=== PATIENT | male | born 1960 | race Caucasian/White ===

== ENCOUNTER 2025-07-02 10:57 | Emergency (ER) | payer OTHER, SELFPAY ==
--- NOTE | ~2025-07-02 | US_ITS ---
CLINICAL HISTORY: left ankle foot swelling. DVT? Venous duplex ultrasound left lower extremity Comparison: None provided Findings: The visualized deep veins are fully compressible with normal Doppler color flow and spectral tracings. No popliteal cyst. IMPRESSION: 1. Negative for left lower extremity deep vein thrombosis. This document has been electronically signed by: Shirley Smith MD on 07/02/2025 14:13:55
--- NOTE | ~2025-07-02 | XR_ITS ---
CLINICAL HISTORY: trauma, fracture? 3 view left ankle Comparison: None provided Findings: No acute fractures. Ankle mortise intact. There is lateral soft tissue edema. No significant loss of joint space, osteophytes, or erosions. No ankle effusion. No radiopaque foreign body. IMPRESSION: No acute bony injury. This document has been electronically signed by: Shirley Smith MD on 07/02/2025 13:24:31
--- NOTE | ~2025-07-02 | XR_ITS ---
CLINICAL HISTORY: trauma. fractire? 3 view left foot Comparison: None provided Findings: No fractures or dislocations. Soft tissue edema of the lateral aspect of the ankle. No significant loss of joint space, osteophytes, or erosions. No ankle effusion. No radiopaque foreign body. IMPRESSION: 1. No acute findings. This document has been electronically signed by: Shirley Smith MD on 07/02/2025 13:24:12
[2025-07-02 11:36] VITALS: BP 135/78; PULSE 83; RESP 16; TEMP 36.3; O2SAT 97; BMI 25.5
--- NOTE | 2025-07-02 11:40 | ED_ITS ---
HPI - General Adult General Chief complaint: Extremity Injury, Lower Stated complaint: L ankle swollen Time Seen by Provider: 07/02/25 12:09 Source: patient Mode of arrival: ambulatory Limitations: no limitations History of Present Illness ED Provider: Omar Gomez [facility] narrative: 64 yold male presents to the ED for left ankle pain and swelling after hitting left anle on side of his boat while fishing. patient denies any head trauma or any other complaints. Related Data Previous Rx's ?Medication ?Instructions ?Recorded naproxen 500 mg tablet 500 mg PO BID PRN pain #14 t abs 07/02/25 Allergies Allergy/AdvReac Type Severity Reaction Status Date / Time penicillin V Allergy Unknown Verified 07/02/25 11:38 Review of Systems 2 Review of Systems: left ankle pain Yes all other systems are reviewed and are negative [facility] Social History Social History Advance Directives: No Advance Directives Information Provided: Yes Physical Exam ED Vital Signs: Vital Signs - 24 hr 07/02/25 11:36 Temperature 97.3 F Pulse Rate 83 Respiratory Rate 16 Blood Pressure 135/78 Pulse Oximetry 97 Oxygen Delivery Method Room Air BMI result Body Mass Index 25.5 Const General: cooperative, healthy appearing, comfortable, no acute distress and well developed Orientation/consciousness: patient oriented x3 HENMT Head: Yes normal to inspection, Yes No palpable skull fracture present, Yes normocephalic and Yes atraumatic Eyes General: appearance normal, both eyes and all related structures Neck Neck: Yes normal visual inspection, Yes full ROM, Yes no lymphadenopathy, Yes no meningeal signs, Yes trachea midline, Yes supple, No anterior neck swelling and No tender Chest Chest palpation & inspection: normal inspection of the chest and normal palpation of entire chest wall Resp Effort & Inspection: normal respiratory effort and able to speak in complete sentences Auscultation: clear to auscultation bilaterally Cardio Jugular venous distension: no JVD Heart sounds: S1 normal heart sound present and S2 normal heart sound present GI Inspection: Yes normal to inspection Palpation (GI): Soft to palpation, not firm, nontender, no guarding and not rigid General: Yes no CVA tenderness Back/Spine/Pelvis Back: no CVA tenderness and No back tenderness Skin General skin exam: no rashes or lesions noted, elasticity normal and turgor normal Neuro General: patient oriented x3, gait normal, tone normal, moves all extremities, Normal light touch and pain sensation, no meningeal signs, no focal motor deficits, CN's II-XI intact bilaterally and normal sensation to monofilament Extrem General: Yes normal to inspection, Yes full ROM and No capillary refill normal Ankle/foot/toe images: 2 1. positive for tenderness and slight ecchyomsis. rest of extremity normal. no erythema, wounds, foul odor, pus discharge, or deformitites. motor, neuro, and vacsular exam intact. Psych Appearance: grossly normal, well kempt and not disheveled Course Course Course Narrative: RME: 64-year-old male presents to ED for left ankle pain and swelling for 1 week. Patient states he went on a [place] and hit his left ankle on the foot since then has been swollen and painful. Patient denies any calf pain chest pain shortness of breath. Positive for left ankle foot swelling. X-rays ordered. Vascular motor neuro exam intact. Medications Administered Discontinued Medications Generic Name Dose Route Start Last Admin Trade Name Freq PRN Reason Stop Dose Admin Ketorolac Tromethamine 30 mg 07/02/25 14:22 07/02/25 14:44 Ketorolac Tromethamine 30 Mg/Ml Vial IM 07/02/25 14:23 30 mg ONCE ONE Administration Medical Decision Making Medical Decision Making [facility] Narrative: 64-year-old male presents to ED for left ankle pain after banging ankle on both last week while fishing. Patient denies falling to the water, hitting head, any other trauma. Patient denies any calf pain, recent long travel recent surgery, chest pain, or shortness of breath. Patient denies any redness, pus discharge, foul odor, or redness. Exam positive for left ankle foot swelling. Ultrasound negative for DVT. X-ray negative for fracture. Diagnosed in contusion. Not suspecting arterial occlusion, compartment syndrome, PE, cellulitis, osteomyelitis, necrotizing fasciitis, or any other life-threatening etiology Differential Diagnosis Differential Diagnoses: The differential diagnosis associated with the presentation includes (Contusion sprain fracture DVT) Admission/Observation Consideration of admission/observation: Escalation of care including admission/observation considered Independent Interpretation I performed an independent interpretation of an: Plain X-Ray and Ultrasound Radiology Impression Discussion of test interpretation with radiology: I have reviewed the radiologist's reading. Independent Historian Clinical information obtained from an independent historian. History obtained from or confirmed by: Other (patient) Prescription Management I considered prescription management with: Pain Medication Discharge Plan Discharge Clinical Impression: Ankle sprain and strain Patient Disposition: Home, Self-Care Instructions: Ankle Sprain (ED), How to Use an Elastic Bandage (ED), P.R.I.C.E. Treatment (ED) Additional Instructions: Recommend follow-up with your primary care provider. X-rays came back negative for fracture. Ultrasound came back negative for DVT. Recommend ice elevation and NSAIDs. Return to the ED immediately for any worsening pain, bluish black discoloration, redness, skin tightness, calf pain, chest pain, shortness of breath, fever, chills, or any other concerning symptoms. Ordering Physician: Omar Gomez Date of Service: 07/02/25 Procedure(s): US venous duplex LE LT Accession Number(s): [id number] cc: Omar Gomez; Physician,Unknown ~ Reason for Exam: left ankle/foot swelling. DVT? CLINICAL HISTORY: left ankle foot swelling. DVT? Venous duplex ultrasound left lower extremity Comparison: None provided Findings: The visualized deep veins are fully compressible with normal Doppler color flow and spectral tracings. No popliteal cyst. IMPRESSION: 1. Negative for left lower extremity deep vein thrombosis. This document has been electronically signed by: Shirley Smith MD on 07/02/2025 14:13:55 rdering Physician: Omar Gomez Date of Service: 07/02/25 Procedure(s): XR foot LT min 3V Accession Number(s): [id number] cc: Omar Gomez; Physician,Unknown ~ Reason for Exam: trauma. fractire? CLINICAL HISTORY: trauma. fractire? 3 view left foot Comparison: None provided Findings: No fractures or dislocations. Soft tissue edema of the lateral aspect of the ankle. No significant loss of joint space, osteophytes, or erosions. No ankle effusion. No radiopaque foreign body. IMPRESSION: 1. No acute findings. This document has been electronically signed by: Shirley Smith MD on 07/02/2025 13:24:12 Ordering Physician: Omar Gomez Date of Service: 07/02/25 Procedure(s): XR ankle LT min 3V Accession Number(s): [id number] cc: Omar Gomez; Physician,Unknown ~ Reason for Exam: trauma, fracture? CLINICAL HISTORY: trauma, fracture? 3 view left ankle Comparison: None provided Findings: No acute fractures. Ankle mortise intact. There is lateral soft tissue edema. No significant loss of joint space, osteophytes, or erosions. No ankle effusion. No radiopaque foreign body. IMPRESSION: No acute bony injury. This document has been electronically signed by: Shirley Smith MD on 07/02/2025 13:24:31 Prescriptions: New naproxen 500 mg tablet 500 mg PO BID PRN (Reason: pain) Qty: 14 0RF Stand Alone Forms: Work/School Release Interventions: ED Discharge Assessment Last Done: 07/02/25 15:09 Discharge Date/Time: 07/02/25 15:10 Print Language: Yakut
--- OUTSIDE RECORDS SUMMARY | 2025-07-02 12:27 | XMS_ITS | Encounter Summary ---
Author Organization [facility] Health Address [address] [place] [address] Care Team Providers Care Forming Department Supervisor Name Role Phone Unavailable Primary Care Provider Unavailabl e Prior Encounters Date Type Department Care Team Description 11/14/2019 Converted 13x Documents [facility] [address], [address] [address] <No scans attached> Plan of Treatment Not on file Visit Diagnoses Not on file
--- OUTSIDE RECORDS SUMMARY | 2025-07-02 12:27 | XMS_ITS | Encounter Summary ---
Author Organization [facility] Address [address] [place] [address] Care Team Providers Care Volunteer Manager Name Role Phone Clifford Mckay MD Primary Care Provider [phone] Jason Pillai MD Unavailable [phone] Encounter Details Date Type Department Care Team (Late st Contact Info) Description 07/06/2023 Orders Only [facility] [address] [place], [place] [id number] Provider, MD Joi Social History Tobacco Use Types Packs/Day Years Used Date Smoking Tobacco: Never Smokeless Tobacco: Never Alcohol Use Standard Drinks/Week Comments Yes 3 (1 standard drink = 0.6 oz pur e alcohol) Social drinker Health Literacy Answer Date Recorded Do you ever need help readin g or understanding your medical information? No 02/04/2023 Health Literacy Assistance Not on file 02/04 Access to Care Answer Date Recorded In the past year have you or any family members you live with been unable to get medical or health care when it was really needed? No 02/04/2023 Access to Care Assistance Not on file 2022 Social Connections Answer Date Recorded In the last 12 months, were you satisfied with the amount of time you were able to connect with family, friends, or neighbors? No 02/04/2023 Would the patient like pam tanchrissy or more information with this area of need? Yes 02/04/2023 Financial Resource Strain Answer Date R ecorded In the past 12 months has th e electric, gas, oil, or water [employer] threatened to shut off services in your home? No 02/04/2023 Financial Resource Strain Assistance Not on file 02/04/2023 Food Insecurity Answer Date Recorded In the last 12 months, did y ou ever eat less than you felt you should because there wasn't enough money for food? Never true 02/04/2023 Food Insecurity Assistance Not on file 02/04 Transportation Needs Answer Date Record ed Do you put off or neglect go ing to the doctor because of distance or transportation? No 02/04/2023 Transportation Needs Assistance Not on file 02/04/2023 Housing Stability Answer Date Recorded Are you worried or concerned that in the next two months you may not have stable housing that you own, rent, or stay in as a part of a household? No 02/04/2023 Housing Stability Assistance Not on file 09/2023 Sex and Gender Information Value Date Recorded Sex Assigned at Male 11/05/2022 11:09 AM EST Legal Sex Male 7:17 AM EST Gender Identity Male 05/01/2022 8:49 AM EDT Sexual Orientation Straight 02/01/2025 8: 31 AM EDT documented as of this encounter Functional Status * Patient's vision adequate to safely complete daily activities? Answer Date of Assessment Author Yes 08/04/2020 11:00 PM EDT Makeda Garcia RN documented as of this encounter Plan of Treatment Upcoming Encounters Date Type Department Care Team (Late st Contact Info) Description 07/14/2025 7:30 AM EDT Office Visit [facility] [address] [place] [address] Jason Pillai MD [address] [place] [address] [address] [place] [address] documented as of this encounter Procedures Procedure Name Priority Date/Time Associated Diagnosis Comments DIABETES EYE EXAM Routine 06/16/2022 10:12 AM EDT documented in this encounter Results * DIABETES EYE EXAM (06/16/2022 10:12 AM EDT) Historical Provider HEALTH MAINTENANCE Final Result documented in this encounter Visit Diagnoses Not on filedocumented in this encounter Care Teams Volunteer Manager Relationship Specialty Start Date End Date Clifford Mckay MD [address] [facility] [address] [place] [address] PCP - General Internal Medicine 08/06/20 Jason Pillai MD [address] [facility] [address] [place] [address] Referring Physician Endocrinology 02/14/22 documented as of this encounter
--- OUTSIDE RECORDS SUMMARY | 2025-07-02 12:27 | XMS_ITS | Clinical Summary ---
Author Organization [facility] Health [facility] [address] [address] [address] Care Team Providers Care Building Contractor Name Role Phone Unavailable Primary Care Provider Unavailabl e Social History Tobacco Use Types Packs/Day Years Used Date Smoking Tobacco: Never Assessed Sex and Gender Information Value Date Recorded Sex Assigned at Not on file Legal Sex Male 8:39 PM PDT Gender Identity Not on file Sexual Orientation Not on file Plan of Treatment Not on file
--- OUTSIDE RECORDS SUMMARY | 2025-07-02 12:28 | XMS_ITS | Encounter Summary ---
Author Organization [facility] Address [address] [place] [address] Care Team Providers Care Board Certified Arts Therapist Name Role Phone Clifford Mckay MD Primary Care Provider [phone] Jason Pillai MD Unavailable [phone] Encounter Details Date Type Department Care Team (Late st Contact Info) Description 08/05/2022 Scanned Documents [facility] External Scan [address] [place] [address] Scanned, Document Social History Tobacco Use Types Packs/Day Years Used Date Smoking Tobacco: Never Smokeless Tobacco: Never Alcohol Use Standard Drinks/Week Comments Yes 0 (1 standard drink = 0.6 oz pur e alcohol) socially Sex and Gender Information Value Date Recorded [...] Description 07/14/2025 7:30 AM EDT Office Visit [address] [place], [place] [address] Jason Pillai MD [address] [facility] [address] [place] [address] documented as of this encounter Visit Diagnoses Not on filedocumented in this encounter Care Teams Board Certified Arts Therapist Relationship Specialty Start Date End Date Clifford Mckay MD [address] [facility] [address] [place] [phone] PCP - General Internal Medicine 08/06/20 Jason Pillai MD [address] [facility] [address] [place] [address] Referring Physician Endocrinology 02/14/22 documented as of this encounter
--- OUTSIDE RECORDS SUMMARY | 2025-07-02 12:28 | XMS_ITS | Encounter Summary ---
Author Organization [facility] Address [address] [place] [address] Care Team Providers Care Refrigerator Repairman Name Role Phone Clifford Mckay MD Primary Care Provider [phone] Jason Pillai MD Unavailable [phone] Encounter Details Date Type Department Care Team (Late st Contact Info) Description 03/28/2025 Scanned Documents [facility] Physician [facility] External Scan [address] [place] [id number] Scanned, Document Social History Tobacco Use Types [...] No 02/04/2023 Would the patient like pam [place]ks[place] or more information with this area of need? Yes 02/04/2023 Financial Resource Strain Answer Date R ecorded In the past 12 months has [employer], gas, oil, or water [employer] threatened to shut off services in your [...] Description 07/14/2025 7:30 AM EDT Office Visit [facility] Physician [address] [place] [address] Jason Pillai MD [address] [facility] [address] [place] [address] documented as of this encounter Visit Diagnoses Not on filedocumented in this encounter Care Teams Refrigerator Repairman Relationship Specialty Start Date End Date Clifford Mckay MD [address] [place] [address] PCP - General Internal Medicine 08/06/20 Jason Pillai MD [address] [facility] [address] [place] [address] Referring Physician Endocrinology 02/14/22 documented as of this encounter
--- OUTSIDE RECORDS SUMMARY | 2025-07-02 12:28 | XMS_ITS | Encounter Summary ---
Author Organization [facility] Address [address] [place] [address] Care Team Providers Care Cloth Framer Name Role Phone Clifford Mckay MD Primary Care Provider [phone] Jason Pillai MD Unavailable [phone] Encounter Details Date Type Department Care Team (Late st Contact Info) Description 06/06/2025 Scanned Documents [facility] [address] [place], [place] [address] Jason Pillai MD [address] [facility] [address] [place], [place] [id number] Social History Tobacco Use Types Packs/Day Years [...] th e electric, gas, oil, or water company threatened to shut off services in your [...] Description 07/14/2025 7:30 AM EDT Office Visit [facility] [address] [place] [address] Jason Pillai MD [address] [facility] [address] [place] [address] documented as of this encounter Visit Diagnoses Not on filedocumented in this encounter Care Teams Cloth Framer Relationship Specialty Start Date End Date Clifford Mckay MD [address] [place] [address] PCP - General Internal Medicine 08/06/20 Jason Pillai MD [address] [facility] [address] [place] [address] Referring Physician Endocrinology 02/14/22 documented as of this encounter
--- OUTSIDE RECORDS SUMMARY | 2025-07-02 12:28 | XMS_ITS | Clinical Summary ---
Author Organization [facility] Address [address] [place] [address] Care Team Providers Care Antisqueak Applier Name Role Phone Clifford Mckay MD Primary Care Provider [phone] Jason Pillai MD Unavailable [phone] Allergies Active Allergy Reactions Criticality Noted Date Comments Penicillins 07/09/2010 Medications Blood Glucose Monitoring Suppl (CONTOUR NEXT MONITOR) w/Device KITIndications:Ty pe 2 Diabetes Mellitus 1 Device 3 times daily Indications : Type 2 Diabetes 1 Kit 12/20/19 25 Active BD PEN NEEDLE JOSE A 2ND GEN 32G X 4 MM MISCIndications:U ncontrolled type 2 diabetes mellitus with hyperglycemia (HCC) Use as directed for daily insulin injection. 100 Each 3 12/23/19 25 Active glucose blood test strips (CONTOUR NEXT TEST) test stripIndications: Type 2 Diabetes Mellitus Check FSBG 3x daily. Indications : Type 2 Diabetes 100 Each 3 02/15/20 25 Active Microlet Lancets MISCIndications:T ype 2 Diabetes Mellitus 1 Device 3 times daily Indications : Type 2 Diabetes 300 Each 3 03/31/20 25 Active Insulin Glargine (LANTUS SOLOSTAR) 100 UNIT/ML SOPNIndications:T ype 2 Diabetes Mellitus Inject 38 Units into the skin nightly Indications : Type 2 Diabetes 45 mL 1 06/06/20 25 Active metFORMIN (GLUCOPHAGE) 1000 MG tabletIndications :Type 2 Diabetes Mellitus Take 1 Tablet (1,000 mg) by mouth 2 times daily (with meals) Indications : Type 2 Diabetes 180 Tablet 06/06/20 25 Active atorvastatin (LIPITOR) 40 MG tabletIndications :Mixed hyperlipidemia TAKE 1 TABLET(40 MG) BY MOUTH EVERY NIGHT FOR HIGH AMOUNT OF FATS IN THE BLOOD 90 Tablet 3 06/27/20 25 Active atorvastatin (LIPITOR) 40 MG tabletIndications :Hyperlipidemia Take 1 Tablet (40 mg) by mouth daily at 6pm Indications : High Amount of Fats in the Blood 90 Tablet 1 12/31/19 25 025 Discontinued metFORMIN (GLUCOPHAGE) 1000 MG tabletIndications :Type 2 Diabetes Mellitus Take 1 Tablet (1,000 mg) by mouth 2 times daily (with meals) Indications : Type 2 Diabetes 180 Tablet 03/28/20 25 025 Discontinued(R eorder) Insulin Glargine (LANTUS SOLOSTAR) 100 UNIT/ML SOPNIndications:T ype 2 Diabetes Mellitus Inject 38 Units into the skin nightly Indications : Type 2 Diabetes 45 mL 1 03/28/20 25 025 Discontinued(R eorder) Active Problems Problem Noted Date Diagnosed Date Acute right ankle pain 03/10/2023 Right calf pain 03/10/2023 Uncontrolled type 2 diabetes mellitus with hyper glycemia 04/24/2022 Mixed hyperlipidemia 04/24/2022 History of pancreatitis 04/24/2022 Type 2 diabetes mellitus wit hout complication, without long-term current use of insulin 08/06/2020 Fatty liver 08/05/2020 Hyponatremia 08/05/2020 Pancreatitis 08/04/2020 Encounters Date Type Department Care Team Description 06/23/2025 Refill [facility] Physician [address] [place] [address] Jason Pillai MD Mixed hyperlipidemia 06/10/2025 Results Follow-Up [facility] Physician [address] [place] [address] Jason Pillai MD Comprehensive Metabolic Panel, Hemoglobin A1c, Lipid Panel, CBC w/Automated Diff 06/06/2025 8:30 AM EDT Office Visit [facility] Physician [address] [facility] [place] [address] Jason Pillai MD Uncontrolled type 2 diabetes mellitus with hyperglycemia (HCC) (Primary Dx); Mixed hyperlipidemia 06/06/2025 Scanned Documents [facility] Physician [address] [place] [address] Jason Pillai MD 06/06/[address] [place] [address] Viviana Rand MA Uncontrolled type 2 diabetes mellitus with hyperglycemia (HCC) 04/14/[address] [place] [address] Jason Pillai MD Uncontrolled type 2 diabetes mellitus with hyperglycemia (HCC) from Last 3 Months Family History Medical History Relation Name Comments Cancer Maternal Aunt Raymond Taylor Cancer Maternal Uncle Nicholas Aguillon Diabetes Natural Father Hunter Mehringer Diabetes Natural Mother Jody Moranhringer Relation Name Status Comments Maternal Aunt Raymond Taylor Maternal Uncle Nicholas Aguillon Natural Father Hunter Mehringer Natural Mother Jody Moranhringer Alive Social History Tobacco Use Types Packs/Day Years Used Date Smoking Tobacco: Never Smokeless Tobacco: Never Tobacco Cessation:Counseling Given: Yes Alcohol Use Standard Drinks/Week Comments Yes 3 [...] ecorded In the past 12 months has e electric, gas, oil, or water [employer] threatened to shut off services in your [...] Orientation Straight 02/01/2025 8: 31 AM EDT Last Filed Vital Signs Vital Sign Reading Time Taken Comments Blood Pressure 110/70 06/06/2025 8:28 AM EDT Pulse 76 06/06/2025 8:28 AM EDT Temperature 36.7 C (98 F) 06/06/2025 8:28 AM EDT Respiratory Rate 20 06/06/2025 8:28 AM EDT Oxygen Saturation 98% 06/06/2025 8:28 AM EDT Inhaled Oxygen Concentration - - Weight 80.3 kg (177 lb) 06/06/2025 8:28 AM EDT Height 177.8 cm (5' 10 ) 06/06/2025 8:28 AM EDT Body Mass Index 25.4 06/06/2025 8:28 AM EDT Plan of Treatment Upcoming Encounters Date Type Department Care Team (Late st Contact Info) Description 07/14/2025 7:30 AM EDT Office Visit [facility] [address] [place] [address] Jason Pillai MD [address] [facility] [address] [place] [address] Health Maintenance Due Date Last Done Comments Foot Exam 1972 Annual Physical Exam 1974 Hepatitis C Antibody Screen 1980 Colonoscopy 2007 Colorectal Cancer Screening 2007 FIT DNA / Cologuard 2007 FIT 2007 FOBT 2007 Sigmoidoscopy 2007 Zoster Vaccines (1 of 2) 2012 Ophthalmology Exam 06/16/2023 06/16/2022 PSA 01/25/2024 01/24/2022 Microalbuminuria 07/06/2024 07/06/2023, , 08/04/2020 Depression Screening 05/10/2025 02/08/2025, 12/20/2024, 11/08/2024, Additional history exists COVID-19 Vaccine ( - 2023-2 5 season) 2025 Flu Vaccine (#1) 06/26/2025 Hemoglobin A1C 09/06/2025 06/06/2025, 01/24, 11/08/2024, Additional history exists Lipids 06/06/2026 06/06/2025, 01/24, 11/08/2024, Additional history exists Tetanus / Tdap Shot 04/15/2035 04/15/2025 Pneumococcal Vaccine: Pediatrics (0 to 5 Years) and At-Risk Patients (6 to 64 Years) Aged Out No longer eligible based on patient's age to complete this topic Procedures Procedure Name Priority Date/Time Associated Diagnosis Comments CBC W/AUTOMATED DIFF PERFORMABLE Routine 06/06/2025 9:05 AM EDT Uncontrolled type 2 diabetes mellitus with hyperglycemia (HCC) LIPID PANEL Routine 06/06/2025 9:05 AM EDT Uncontrolled type 2 diabetes mellitus with hyperglycemia (HCC) Mixed hyperlipidemia CBC W/AUTOMATED DIFF PERFORMABLE Routine 06/06/2025 9:05 AM EDT Uncontrolled type 2 diabetes mellitus with hyperglycemia (HCC) HEMOGLOBIN A1C Routine 06/06/2025 9:05 AM EDT Uncontrolled type 2 diabetes mellitus with hyperglycemia (HCC) COMPREHENSIVE METABOLIC PANEL Routine 06/06/2025 9:05 AM EDT Uncontrolled type 2 diabetes mellitus with hyperglycemia (HCC) MICROALBUMIN RANDOM UR*X*[id number] Routine 07/06/2023 9:38 AM EDT Uncontrolled type 2 diabetes mellitus with hyperglycemia (HCC) Mixed hyperlipidemia DIABETES EYE EXAM Routine 06/16/2022 10:12 AM EDT EXTERNAL PSA Routine 01/24/2022 from Last 3 Months or Most Recently Relevant to Health Maintenance Results * CBC w/Automated Diff (06/06/2025 9:05 AM EDT) WBC 6.32 4.00 - 11.00 K/UL 06/06/2025 3:50 PM [facility] RBC 4.81 4.00 - 5.70 m/uL 06/06/2025 3:50 PM [facility] HGB 13.8 13.0 - 18.0 g/dL 06/06/2025 3:50 PM [facility] HCT 41.8 40.0 - 52.0 % 06/06/2025 3:50 PM [facility] MCV 86.9 77.0 - 98.0 FL 06/06/2025 3:50 PM [facility] MCH 28.7 26.0 - 32.0 PG 06/06/2025 3:50 PM [facility] MCHC 33.0 32.0 - 36.0 G/DL 06/06/2025 3:50 PM [facility] RDW 13.2 11.6 - 14.4 % 06/06/2025 3:50 PM [facility] PLT 301 150 - 400 K/UL 06/06/2025 3:50 PM [facility] MPV 9.4 9.4 - 12.4 FL 06/06/2025 3:50 PM [facility] NRBC Percent 0.0 <=0.0 % 06/06/2025 3:50 PM [facility] NRBC Abs 0.00 <=0.00 K/UL 06/06/2025 3:50 PM [facility] Neutro 62.7 40.0 - 70.0 % 06/06/2025 3:50 PM [facility] Lymph 24.5 19.0 - 45.0 % 06/06/2025 3:50 PM [facility] Monocyte % 11.2 4.7 - 12.5 % 06/06/2025 3:50 PM [facility] Eosinophil % 0.9 0.1 - 7.0 % 06/06/2025 3:50 PM [facility] Baso % 0.5 0.0 - 2.0 % 06/06/2025 3:50 PM [facility] Immature Granulocyte 0.2 >0.0 - <0.5 % 06/06/2025 3:50 PM [facility] Neutro Absolute 3.96 1.80 - 7.70 K/UL 06/06/2025 3:50 PM [facility] Lymph Absolute 1.55 1.20 - 3.70 K/UL 06/06/2025 3:50 PM [facility] Park Absolute 0.71 0.00 - 0.80 K/UL 06/06/2025 3:50 PM [facility] Eo Absolute 0.06 0.00 - 0.50 K/UL 06/06/2025 3:50 PM [facility] Basophils Ab 0.03 0.00 - 0.10 K/UL 06/06/2025 3:50 PM [facility] Immature Granulocyte Absolute 0.01 <0.06 K/uL 06/06/2025 3:50 PM [facility] Blood Venipuncture / Unknown 06/06/2025 9:05 AM EDT 06/06/2025 9:05 AM EDT us Jason Pillai MD HEMATOLOGY ORDERABLES Final Result Performing Organization Address City/[facility]/ZIP Co de Phone Number [address] [address] * (ABNORMAL) Hemoglobin A1c (06/06/2025 9:05 AM EDT) Est. Avg. Glucose 165.68 mg/dL 06/06/2025 4:44 PM EDT [facility] Hemoglobin A1C 7.4(H) <5.7 % 06/06/2025 4:44 PM EDT [facility] Comment: ADA RECOMMENDATIONS: Non Diabetic: <5.7% Prediabetic: 5.7% to 6.4% Diabetic: =or> 6.5% Diabetic Control:<7.0% Properly Managed GLYCOHEMOGLOBIN ASSAYS SHOULD BE PERFORMED AT LEAST TWICE YEARLY FOR THE PATIENT WHO HAS STABLE GLYCEMIC CONTROL. Blood Venipuncture / Unknown 06/06/2025 9:05 AM EDT 06/06/2025 9:05 AM EDT Jason Pillai MD CHEMISTRY ORDERABLES Final Result Performing Organization Address [facility] Co de Phone Number [address] [address] * Lipid Panel (06/06/2025 9:05 AM EDT) Cholesterol 89 <200 MG/DL 06/06/2025 4:29 PM EDT [facility] Comment: CHOL. RISK FACTORS FOR C.H.D. FOR ADULT PATIENTS ONLY <200 MG/DL: DESIRABLE 200-239 MG/DL: BORDERLINE/HIGH RISK 240 OR >240 MG/DL: HIGH RISK Non-HDL Cholesterol 48 06/06/2025 4:29 PM EDT [facility] Comment: PLEASE NOTE THAT CHOL (-HDL) IS A CALCULATED TEST DERIV ED FROM TOTAL CHOLESTEROL MINUS HDL. NCEP RECOMMENDS A TARGET GOAL OF 30 MG/DL MORE THAN THE TARGET GOAL FOR LDL. HDL 41 >39 MG/DL 06/06/2025 4:29 PM EDT [facility] Triglycerides 45 <150 MG/DL 06/06/2025 4:29 PM EDT [facility] LDL 39 <100 MG/DL 06/06/2025 4:29 PM EDT [facility] Comment:LDL WAS CALCULATED U SING THE FORMULA: LDL = CHOLESTEROL - HDL - (TRIGLYCERIDE / 5). VLDL 9 <=30 mg/dL 06/06/2025 4:29 PM EDT [facility] Comment:VLDL WAS CALCULATED USING FORMULA: VLDL= TRIGLYCERIDE / 5. Blood Venipuncture / Unknown 06/06/2025 9:05 AM EDT 06/06/2025 9:05 AM EDT us Jason Pillai MD CHEMISTRY ORDERABLES Final Result [address] [address] * (ABNORMAL) Comprehensive Metabolic Panel (06/06/2025 9:05 AM EDT) Sodium 139 136 - 145 MMOL/L 06/06/2025 4:30 PM EDT [facility] Potassium 4.5 3.5 - 5.2 MMOL/L 06/06/2025 4:30 PM T [facility] Chloride, Serum 107 98 - 107 MMOL/L 06/06/2025 4:30 PM T [facility] CO2 25 22 - 30 MMOL/L 06/06/2025 4:30 PM T [facility] Anion Gap W/ K 12 9 - 18 MMOL/L 06/06/2025 4:30 PM T [facility] Glucose 132(H) 74 - 100 MG/DL 06/06/2025 4:30 PM T [facility] Comment: ([employer] RECOMMENDATION) FASTING GLUCOSE <100 NORMAL 100-125 PREDIABETIC 126 OR HIGHER DIABETIC BUN 17 9 - 24 mg/dL 06/06/2025 4:30 PM EDT [facility] Creatinine 0.77 0.7 - 1.3 mg/dL 06/06/2025 4:30 PM [facility] Calcium 8.7 8.4 - 10.3 MG/DL 06/06/2025 4:30 PM [facility] Albumin 4.8 3.5 - 5.0 G/DL 06/06/2025 4:30 PM [facility] Total Protein 6.8 6.4 - 8.3 G/DL 06/06/2025 4:30 PM [facility] ALK phos 63 40 - 150 U/L 06/06/2025 4:30 PM [facility] Ast 17 5 - 34 U/L 06/06/2025 4:30 PM [facility] ALT 17 <=44 U/L 06/06/2025 4:30 PM [facility] Bilirubin,Total 0.8 0.3 - 1.2 MG/DL 06/06/2025 4:30 PM [facility] GFR, EST. 101 ML/MIN/1.7 3M SQ 06/06/2025 4:30 PM [facility] Comment: GFR = 142 x min(Scr/k, 1)a x max(Scr/k, 1)-1.200 x 0.9938Age x 1.012 [if female]. General guidelines, and individual values may vary slightly. Age Group (Years) / Normal eGFR (mL/min/1.73 m2) 18-29 90-120 mL/min/1.73 m2 30-39 80-110 mL/min/1.73 m2 40-49 70-100 mL/min/1.73 m2 50-59 60-90 mL/min/1.73 m2 60-69 50-80 mL/min/1.73 m2 70-79 40-70 mL/min/1.73 m2 80+ 30-60 mL/min/1.73 m2 A normal eGFR in blood is generally 90 or higher. However, eGFR naturally declines with age, and value between 60 and 89 may still be considered normal in the absence of other signs of kidney damage. Like protein in the urine. An eGFR below 60 for three months or more may indicate kidney disease. Calculation based on the Chronic Kidney Disease Epidemiology Collaboration (CKD- EPI) equation refit without adjustment for race. Blood Venipuncture / Unknown 06/06/2025 9:05 AM EDT 06/06/2025 9:05 AM EDT Result [facility] Jason Pillai MD CHEMISTRY ORDERABLES Final Result Performing Organization Address [facility] de Phone Number [address] [address] * (ABNORMAL) Microalbumin, Random Urine (07/06/2023 9:38 AM EDT) Ucrea For Malb 204.5 mg/dL 07/06/2023 4:50 PM EDT [facility] Malbu 8.4(H) <3.0 MG/DL 07/06/2023 4:50 PM EDT [facility] Malb Crea Ratio 41(H) <30 MCG/MG CREAT 07/06/2023 4:50 PM EDT [facility] Urine Collection / Unknown 07/06/2023 9:38 AM EDT 07/06/2023 9:38 AM EDT Result [facility] Jason Pillai MD URINE ORDERABLES Final Resu lt Performing Organization Address [facility] Co de Phone Number [address] [address] * DIABETES EYE EXAM (06/16/2022 10:12 AM EDT) Historical Kaleigh [employer] MAINTENANCE Final Result * EXTERNAL PSA (01/24/2022) Historical Kaleigh DIAZ HE[employer] MAINTENANCE Final Result from Last 3 Months or Most Recently Relevant to Health Maintenance Insurance [employer] HMO Advance Directives * Full Code (Latest Code Status on File) Date Activated Date Inactivated Comments 08/04/2020 9:42 PM 08/06/2020 8:26 PM Care Teams Antisqueak Applier Relationship Specialty Start Date End Date Clifford Mckay MD [address] [place] [address] PCP - General Internal Medicine 08/06/20 Jason Pillai MD [address] [facility] [address] [place] [address] Referring Physician Endocrinology 02/14/22
--- OUTSIDE RECORDS SUMMARY | 2025-07-02 12:28 | XMS_ITS | Encounter Summary ---
Author Organization [facility]3] Address [address] [place] [address] Care Team Providers Care Residence Leasing Agent Name Role Phone No, Pcp Primary Care Provider Clifford Elaine MD Primary Care Provider [phone] Jason Pillai MD Unavailable [phone] Encounter Details Date Type Department Care Team (Late st Contact Info) Description 05/08/[address] [facility] CONVERSION DEPARTMENT Conversion, [place] [address] Testing [place], [place] Social History Tobacco Use Types Packs/Day Years Used Date Smoking Tobacco: Never Assessed Sex and Gender Information Value Date Recorded Sex Assigned at Male 11/05/2022 11:09 AM EST Legal Sex Male 7:17 AM EST Gender Identity Male 05/01/2022 8:49 AM EDT Sexual Orientation Straight 02/01/2025 8: 31 AM EDT documented as of this encounter Plan of Treatment Upcoming Encounters Date Type Department Care Team (Late st Contact Info) Description 07/14/2025 7:30 AM EDT Office Visit [facility] Physician [address] [place], [place] [id number] Jason Pillai MD [address] [facility] [address] [place], [place] [address] documented as of this encounter Visit Diagnoses Not on filedocumented in this encounter Care Teams Residence Leasing Agent Relationship Specialty Start Date End Date No, Pcp [address] [place] [address] PCP - General Family Medicine 08/04/20 08/05/20 Clifford Mckay MD [address] [facility] [address] [place] [address] PCP - General Internal Medicine 08/06/20 Jason Pillai MD 1 [facility] [address] [place] [address] Referring Physician Endocrinology 02/14/22 documented as of this encounter
--- OUTSIDE RECORDS SUMMARY | 2025-07-02 12:28 | XMS_ITS | Encounter Summary ---
Author Organization [facility] Address [address] [place] [address] Care Team Providers Care Plant Maintenance Engineer Name Role Phone Clifford Mckay MD Primary Care Provider [phone] Jason Pillai MD Unavailable [phone] Reason for Visit * Reason Comments Medication Refill Encounter Details Date Type Department Care Team (Late st Contact Info) Description 06/23/[address] [facility] [place] [address] [facility] [address] [place], [place] [id number] Jason Pillai MD 1 [facility] [address] [place], [place] [address] Mixed hyperlipidemia Social History Tobacco Use Types Packs/Day Years [...] Garcia RN documented as of this encounter Miscellaneous Notes * Telephone Encounter - Melinda Zayas - 06/23/2025 8:46 AM EDT [place] 06/06/2025, [place] 07/14/2025. Please refill documented in this encounter Plan of Treatment Upcoming Encounters Date Type Department Care Team (Late st Contact Info) Description 07/14/2025 7:30 AM EDT Office Visit [facility] Physician [address] [place] [address] Jason Pillai MD 1 [facility] [address] [place] [address] documented as of this encounter Visit Diagnoses Diagnosis Mixed hyperlipidemia documented in this encounter Care Teams Plant Maintenance Engineer Relationship Specialty Start Date End Date Clifford Mckay MD [address] [facility] [address] [place] [id number] PCP - General Internal Medicine 08/06/20 Jason Pillai MD [address] [facility] [address] [place] [address] Referring Physician Endocrinology 02/14/22 documented as of this encounter
--- OUTSIDE RECORDS SUMMARY | 2025-07-02 12:28 | XMS_ITS | Encounter Summary ---
Author Organization [facility] Address [address] [place] [address] Care Team Providers Care 8Th Grade Mathematics Teacher Name Role Phone Clifford Mckay MD Primary Care Provider [phone] Jason Pillai MD Unavailable [phone] Encounter Details Date Type Department Care Team (Latest Contact Info) Description 06/10/2025 Results Follow-Up [facility] [address] [place], [place] [address] Jason Pillai MD [address] [place], [place] [address] Comprehensive Metabolic Panel, Hemoglobin A1c, Lipid Panel, CBC w/Automated Diff Social History Tobacco Use Types Packs/Day Years [...] as of this encounter Miscellaneous Notes * Result Encounter Note - Jason Pillai MD - 06/10/2025 1:09 PM EDT Results of blood test reviewed. I left a vm message for pt Hb A1c 7.4% TC 89, LDL 39, HDL 41, TG 45 documented in this encounter Plan of Treatment Upcoming Encounters Date Type Department Care Team (Late st Contact Info) Description 07/14/2025 7:30 AM EDT Office Visit [address] [place] [address] Jason Pillai MD [address] [facility] [address] [place] [address] documented as of this encounter Visit Diagnoses Not on filedocumented in this encounter Care Teams 8Th Grade Mathematics Teacher Relationship Specialty Start Date End Date Clifford Mckay MD [address] [place] [address] PCP - General Internal Medicine 08/06/20 Jason Pillai MD 1 [facility] [address] [place] [address] Referring Physician Endocrinology 02/14/22 documented as of this encounter
--- OUTSIDE RECORDS SUMMARY | 2025-07-02 12:28 | XMS_ITS | Clinical Summary ---
Author Organization [facility] Address [address] [place] [address] Care Team Providers Care Canal Boat Captain Name Role Phone Clifford Mckay MD Primary Care Provider [phone] Allergies Active Allergy Reactions Criticality Noted Date Comments Penicillins 07/09/2010 Medications atorvastatin (LIPITOR) 10 MG tablet Take 20 mg by mouth daily. Active ASPIRIN PO Take 81 mg by mouth daily. 07/09/2010 Active Family History Medical History Relation Name Comments Heart Disease Paternal Grandfather 45 Heart Disease Paternal Uncle 40 Relation Name Status Comments Paternal Grandfather 45 Paternal Uncle 40 Social History Tobacco Use Types Packs/Day Years Used Date Smoking Tobacco: Never Alcohol Use Standard Drinks/Week Comments No 0 (1 standard drink = 0.6 oz pur e alcohol) Sex and Gender Information Value Date Recorded Sex Assigned at Not on file Legal Sex Male 4:42 EST Gender Identity Not on file Sexual Orientation Not on file Last Filed Vital Signs Vital Sign Reading Time Taken Comments Blood Pressure 109/63 07/09/2010 1300 EDT Pulse 61 07/09/2010 1300 EDT Temperature 36.7 C (98 F) 07/09/2010 0958 EDT Respiratory Rate 18 07/09/2010 1300 EDT Oxygen Saturation 98% 07/09/2010 0958 EDT Inhaled Oxygen Concentration - - Weight 78 kg (172 lb) 07/09/2010617 EDT Height 179.1 cm (5' 10.5 ) 07/09/2010617 EDT Body Mass Index 24.33 07/09/2010617 EDT Plan of Treatment Not on file Care Teams Canal Boat Captain Relationship Specialty Start Date End Date Clifford Mckay MD [address] [address] PCP - General 06/27/10
--- OUTSIDE RECORDS SUMMARY | 2025-07-02 12:28 | XMS_ITS | Encounter Summary ---
Author Organization [facility] Address [address] [place] [address] Care Team Providers Care Garageman Name Role Phone Clifford Mckay MD Primary Care Provider [phone] Jason Pillai MD Unavailable [phone] Encounter Details Date Type Department Care Team (Late st Contact Info) Description 02/17/2022 Orders Only [address] [place] [address] Provider, MD Joi Social History Tobacco Use Types Packs/Day Years Used Date Smoking Tobacco: Never Smokeless Tobacco: Never Alcohol Use Standard Drinks/Week Comments Not Currently 0 (1 standard drink = 0.6 oz [...] Description 07/14/2025 7:30 AM EDT Office Visit [address] [place] [address] Jason Pillai MD 1 [facility] [address] [place] [address] documented as of this encounter Procedures Procedure Name Priority Date/Time Associated Diagnosis Comments SCANNED LAB RESULT Routine 01/23/2022 documented in this encounter Results * SCANNED LAB RESULT (01/23/2022) us Historical Provider SCANNED ORDERS Final Res ult documented in this encounter Visit Diagnoses Not on filedocumented in this encounter Care Teams Garageman Relationship Specialty Start Date End Date Clifford Mckay MD [address] [facility] [address] [place] [address] PCP - General Internal Medicine 08/06/20 Jason Pillai MD 1 [facility] [address] [place] [address] Referring Physician Endocrinology 02/14/22 documented as of this encounter
--- OUTSIDE RECORDS SUMMARY | 2025-07-02 12:28 | XMS_ITS | Encounter Summary ---
Author Organization [facility] Address [address] [place] [address] Care Team Providers Care Lead Manufacturing Technician Name Role Phone Clifford Mckay MD Primary Care Provider [phone] Jason Pillai MD Unavailable [phone] Encounter Details Date Type Department Care Team (Late st Contact Info) Description 02/14/2022 Orders Only [address] [place] [address] Provider, MD Joi Social History [...] Description 07/14/2025 7:30 AM EDT Office Visit [address] [place] [address] Jason Pillai MD [address] [facility] [address] [place] [address] documented as of this encounter Procedures Procedure Name Priority Date/Time Associated Diagnosis Comments HEMOGLOBIN A1C Routine 02/06/2022 documented in this encounter Results * Hemoglobin A1c (02/06/2022) Blood us Historical Provider CHEMISTRY ORDERABLES Kristen l Result documented in this encounter Visit Diagnoses Not on filedocumented in this encounter Care Teams Lead Manufacturing Technician Relationship Specialty Start Date End Date Cliffrod Mckay MD [address] [facility] [address] [place] [address] PCP - General Internal Medicine 08/06/20 Jason Pillai MD [address] [facility] [address] [place] [address] Referring Physician Endocrinology 02/14/22 documented as of this encounter
--- OUTSIDE RECORDS SUMMARY | 2025-07-02 12:28 | XMS_ITS | Encounter Summary ---
Author Organization [facility] Address [address] [place] [address] Care Team Providers Care Business Unit Controller Name Role Phone Clifford Mckay MD Primary Care Provider [phone] Jason Pillai MD Unavailable [phone] Encounter Details Date Type Department Care Team (Late st Contact Info) Description 11/06/2022 Scanned Documents [facility] External Scan [address] [place] [address] Scanned, Document Social History Tobacco Use Types [...] Description 07/14/2025 7:30 AM EDT Office Visit [address] [place], [place] [address] Jason Pillai MD [address] [facility] [address] [place] [address] documented as of this encounter Visit Diagnoses Not on filedocumented in this encounter Care Teams Business Unit Controller Relationship Specialty Start Date End Date Clifford Mckay MD [address] [facility] [address] [place] [phone] PCP - General Internal Medicine 08/06/20 Jason Pillai MD [address] [facility] [address] [place] [address] Referring Physician Endocrinology 02/14/22 documented as of this encounter
--- OUTSIDE RECORDS SUMMARY | 2025-07-02 12:28 | XMS_ITS | Encounter Summary ---
Author Organization [facility] Address [address] [place] [address] Care Team Providers Care Mechanical Technologist Name Role Phone Clifford Mckay MD Primary Care Provider [phone] Jason Pillai MD Unavailable [phone] Encounter Details Date Type Department Care Team (Late st Contact Info) Description 02/04/2023 Scanned Documents [facility] Physician [facility] External Scan [address] [place] [address] Scanned, Document Social History Tobacco Use Types Packs/Day Years Used Date Smoking Tobacco: Never Smokeless Tobacco: Never Alcohol Use Standard Drinks/Week Comments Yes 0 (1 standard drink = 0.6 oz pur e alcohol) socially Health Literacy Answer Date Recorded Do you [...] No 02/04/2023 Would the patient like pam tance or more information with this area of need? Yes 02/04/2023 Financial Resource Strain Answer Date R ecorded In the past 12 months has e electric, gas, oil, or water company [...] Description 07/14/2025 7:30 AM EDT Office Visit [facility] Physician [address] [place] [address] Jason Pillai MD 1 [facility] [address] [place] [address] documented as of this encounter Visit Diagnoses Not on filedocumented in this encounter Care Teams Mechanical Technologist Relationship Specialty Start Date End Date Clifford Mckay MD [address] [facility] [address] [place] [phone] PCP - General Internal Medicine 08/06/20 Jason Pillai MD 1 [facility] [address] [place] [address] Referring Physician Endocrinology 02/14/22 documented as of this encounter
--- OUTSIDE RECORDS SUMMARY | 2025-07-02 12:28 | XMS_ITS | Encounter Summary ---
Author Organization [facility] Address [address] [place] [address] Care Team Providers Care Wind Turbine Erector Name Role Phone Clifford Mckay MD Primary Care Provider [phone] Jason Pillai MD Unavailable [phone] Encounter Details Date Type Department Care Team (Late Contact Info) Description 03/12/2022 Orders Only [address] [place] [address] Provider, MD Joi Social History [...] Description 07/14/2025 7:30 AM EDT Office Visit [address] [place] [address] Jason Pillai MD 1 [facility] [address] [place] [address] documented as of this encounter Procedures Procedure Name Priority Date/Time Associated Diagnosis Comments EXTERNAL PSA Routine 01/24/2022 documented in this encounter Results * EXTERNAL PSA (01/24/2022) Historical Provider HEALTH MAINTENANCE Final Result documented in this encounter Visit Diagnoses Not on filedocumented in this encounter Care Teams Wind Turbine Erector Relationship Specialty Start Date End Date Clifford Mckay MD [address] [facility] [address] [place] [phone] PCP - General Internal Medicine 08/06/20 Jason Pillai MD 1 [facility] [address] [place] [address] Referring Physician Endocrinology 02/14/22 documented as of this encounter
--- OUTSIDE RECORDS SUMMARY | 2025-07-02 12:28 | XMS_ITS | Encounter Summary ---
Author Organization [facility] Address [address] [place] [address] Care Team Providers Care Fur Designer Name Role Phone Clifford Mckay MD Primary Care Provider [phone] Jason Pillai MD Unavailable [phone] Encounter Details Date Type Department Care Team (Late st Contact Info) Description 04/07/2023 Telephone [facility] [address] [facility] 1st floor [address] [place], [place] [address] Valeriano Olivarez MD [address] [facility] [address] [place] [address] Social History Tobacco Use Types Packs/Day Years [...] encounter Miscellaneous Notes * Telephone Encounter - Kathe Ram MA - 04/07/2023 2:[address] Olivarez spoke with patient. Physical therapy is in the chart please email to patient. documented in this encounter Plan of Treatment Upcoming Encounters Date Type Department Care Team (Late st Contact Info) Description 07/14/2025 7:30 AM EDT Office Visit [facility] Physician [address] [place] [address] Jason Pillai MD 1 [facility] [address] [place] [address] documented as of this encounter Visit Diagnoses Not on filedocumented in this encounter Care Teams Fur Designer Relationship Specialty Start Date End Date Clifford Mckay MD [address] [facility] [place] [phone] PCP - General Internal Medicine 08/06/20 Jason Pillai MD 1 [facility] [address] [place] [address] Referring Physician Endocrinology 02/14/22 documented as of this encounter
[2025-07-02 15:09] VITALS: BP 135/78; PULSE 83; RESP 16; TEMP 36.3; O2SAT 97
== END 2025-07-02 15:10 | disposition home or self-care (01) ==
PROVIDERS: Emergency Provider Emergency Medicine
DX: S96.912A Strain of unspecified muscle and tendon at ankle and foot level, left foot, initial encounter (principal); S93.402A Sprain of unspecified ligament of left ankle, initial encounter; W22.8XXA Striking against or struck by other objects, initial encounter; Y93.89 Activity, other specified; Y92.89 Other specified places as the place of occurrence of the external cause; Y99.8 Other external cause status
CPT/HCPCS: 73610; 73630; 93971; 96372; 99283; 99284; J1885

== ENCOUNTER → 2025-07-02 11:37 | Outpatient (BNV) | payer OTHER, SELFPAY | PROVIDERS: Emergency Provider Emergency Medicine; Visit Provider Radiology Diagnostic Radiology | DX: R22.42 Localized swelling, mass and lump, left lower limb (principal); S96.911A Strain of unspecified muscle and tendon at ankle and foot level, right foot, initial encounter; W22.8XXA Striking against or struck by other objects, initial encounter | CPT/HCPCS: 73610; 73630; 93971 ==